=== PATIENT | male | born 1990 | race Hispanic/Latino ===

== ENCOUNTER 2022-04-21 15:47 | Emergency (ER) | payer OTHER ==
[2022-04-21] MEDS ORDERED: Acetaminophen 500 MG TAB ONE (17:05)
== END 2022-04-21 17:34 ==
LOC: NAV ERS 15:47
DX: S93.401A Sprain of unspecified ligament of right ankle, initial encounter (principal); S63.501A Unspecified sprain of right wrist, initial encounter; S00.12XA Contusion of left eyelid and periocular area, initial encounter; Z87.891 Personal history of nicotine dependence; X58.XXXA Exposure to other specified factors, initial encounter
CPT/HCPCS: 29125